=== PATIENT | male | born 1940 | race Caucasian/White ===

== ENCOUNTER 2016-11-25 12:04 | Outpatient (CLI) | payer MEDICARE, BC | END 2016-11-25 23:59 | disposition home or self-care (01) | LOC: LAB 12:04 | PROVIDERS: ATTEND Internal Medicine Cardiovascular Disease | DX: I51.7 Cardiomegaly (principal); I70.0 Atherosclerosis of aorta; J98.11 Atelectasis | CPT/HCPCS: 71020-TC ==

== ENCOUNTER 2017-01-06 08:04 | Outpatient (CLI) | payer MEDICARE, BC ==
[2017-01-06] MEDS ORDERED: REGADENOSON 0.4 MG/5 ML DISP.SYRIN IVP ONE (10:00)
== END 2017-01-06 23:59 | disposition home or self-care (01) ==
LOC: NM 08:04
PROVIDERS: ATTEND Internal Medicine Cardiovascular Disease
DX: R07.9 Chest pain, unspecified (principal); R06.00 Dyspnea, unspecified; Z95.2 Presence of prosthetic heart valve
CPT/HCPCS: 78452; A9502; J2785